=== PATIENT | male | born 1975 | race Caucasian/White ===

== ENCOUNTER 2018-08-21 05:40 | Outpatient (CLI) | payer SELFPAY ==
[~2018-08-21] VITALS: Ht 193 cm; Wt 93.0 kg
[2018-08-23] MEDS ORDERED: DOCU-143 PO (12:45)
[2018-08-23] MEDS ORDERED: ACHD5005 PO (12:45)
== END 2018-08-21 13:48 | disposition home or self-care (01) ==
LOC: PREOP 05:40
PROVIDERS: ATTEND Surgery
DX: Z01.818 Encounter for other preprocedural examination (principal)

== ENCOUNTER 2018-08-23 08:37 | Day surgery (SDC) | payer OTHER ==
[~2018-08-23] VITALS: Ht 193 cm; Wt 93.0 kg
--- OUTSIDE RECORDS SUMMARY | 2018-08-23 08:41 | XMS REPORT ---
Author Author Rosie Krishnan Organization [employer] Address Unknown Phone Unavailable Care Team Providers Care Ux Specialist Name Role Phone Rosie Krishnan CP Unavailable Allergies No Known Allergies Problems Problem Type Condition ICD-9 Code Onset Dates Condition Status Assessment Health examination of defined subpopulation V70.5 Active Problem Health examination of defined subpopulation V70.5 Active Medications Medication Code System Code Instructions Start Date End Date Status Dosage Seroquel [facility] [id number] 300 MG Orally Once a day Active 1 tablet at bedtime Procedures Procedure Coding System Code Date Office Visit, New Pt., Level 3 CPT-4 62036 Sep 24, 2013 Vital Signs Date/Time: Sep 24, 2013 Weight 228.12 lbs Height 77 inches Blood Pressure Diastolic 85 mm Hg Blood Pressure Systolic 137 mm Hg Temperature 97.8 F Cardiac Monitoring Heart Rate 99 Beats per Minute Results No Known Results Summary Purpose [employer] Submission
[2018-08-23] MEDS ORDERED: ANCEF 2 GM/50 ML PRE-MIXED IVPB IV ONE (10:00)
[2018-08-23] MEDS: LACTATED RINGERS 1,000 ML IV PRN ×2 (10:30→12:21)
[2018-08-23 10:38] VITALS: BP 138/98
--- NOTE | 2018-08-23 10:47 | Progress Note-Pre Operative ---
Pre-Operative Progress Note H&P Reviewed The H&P was reviewed, patient examined and no changes noted. Date Seen by Provider: Aug 23, 2018 Time Seen by Provider: 10:46 Date H&P Reviewed: Aug 23, 2018 Time H&P Reviewed: 10:46 Pre-Operative Diagnosis: right inguinal hernia RAJAT MARISCAL DO Aug 23, 2018 10:47
[2018-08-23] MEDS ORDERED: MIDAZOLAM 2 MG/2 ML (VERSED) VIAL ONE (11:03)
[2018-08-23] MEDS ORDERED: ROCURONIUM 10 MG/ML 5 ML SYRINGE IV ONE (11:11)
[2018-08-23] MEDS ORDERED: LIDOCAINE PF 2% 2 ML (XYLOCAINE) VIAL ONE ×2 (11:11→11:26)
[2018-08-23] MEDS ORDERED: proPOfol 200 MG/20 ML (DIPRIVAN) VIAL IV ONE (11:11)
[2018-08-23] MEDS ORDERED: ONDANSETRON 4 MG/2 ML (SDV) Z0FRAN ONE (11:11)
[2018-08-23] MEDS ORDERED: LACTATED RINGERS 1,000 ML IV ONE (11:11)
[2018-08-23] MEDS ORDERED: fentaNYL INJECTION 100 MCG/2 ML AMP ONE (11:11)
[2018-08-23] MEDS ORDERED: LIDOCAINE 1% INJ 20 ML 20 ML VIAL ONE (11:20)
[2018-08-23] MEDS ORDERED: BUPIVACAINE 0.5% 30 ML (SENSORCAINE) VIAL ONE (11:20)
[2018-08-23] MEDS ORDERED: SEVOFLURANE (ULTANE) 15 ML INHAL SOLN ONE (12:34)
[2018-08-23] MEDS ORDERED: DEXAMETHASONE 10 MG/ML (DECADRON) 1 ML VIAL ONE (12:35)
[2018-08-23] MEDS ORDERED: GLYCOPYRROLATE 0.2 MG/ML (ROBINUL) 2 ML VIAL ONE (12:40)
[2018-08-23] MEDS ORDERED: NEOSTIGMINE 1 MG/ML 5 ML SYRINGE ONE (12:40)
--- NOTE | 2018-08-23 12:44 | Progress Note-Post Operative ---
Post-Operative Progess Note Surgeon (s)/Box Coverer Hand (s) Surgeon RAJAT MRAISCAL DO Box Coverer Hand: dR. Shepard Pre-Operative Diagnosis right inguinal hernia Post-Operative Diagnosis SAME Procedure & Operative Findings Date of Procedure 08/23/18 Procedure Performed/Findings OPEN RIGHT INGUINAL HERNIA AND EXCISION CORD LIPOMA Anesthesia Type GEN Estimated Blood Loss Estimated blood loss (mL): MIN Specimens/Packing Specimens Removed HERNIA SAC AND CORD LIPOMA RAJAT MARISCAL DO Aug 23, 2018 12:44
[2018-08-23] MEDS ORDERED: DOCU-143 PO (12:45)
[2018-08-23] MEDS ORDERED: ACHD5005 PO (12:45)
--- NOTE | 2018-08-23 12:46 | Discharge Inst-Simple/Standard ---
Discharge Inst-Standard Discharge Medications New, Converted or Re-Newed RX: RX on Chart Patient Instructions/Follow Up Plan of Care/Instructions/FU: 3 WEEKS MARISCAL Activity as Tolerated: No Discharge Diet: Regular Diet Other Inst to Patient Follow up Appt: Make appointment for 3 week. Instructions: No lifting greater than 10 pounds. No strenuous activity. May shower in 24 hours, no tub bath or soaking. Use incentive spirometer at home as directed. No Smoking Skin/Wound Care: YOU HAVE SPECIAL GLUE OVER INCISION IT WILL FALL OFF ON ITS OWN. Symptoms to Report: Appetite Changes, Extremity Discoloration, Numbness/Tingling, Swelling Increased , Bleeding Excessive, Eyesight Changes, Pain Increased, Urine Color Change, Constipation(Persistent), Fever over 101 degree F, Pain/Pressure in chest, Urinating Difficulty, Cough Up/Vomit Blood, Heart Beat Irreg/Pounding, Pain/ Pressure in jaw, Vaginal Bleeding Increase, Cramps in feet or legs, Lightheadedness, Pain/Pressure in shoulder, Diarrhea(Persistent), Memory Changes Suddenly, Questions/Concerns, Weight gain consecutive days, Dizziness/ Fainting, Nausea/Vomiting, Shortness of Breath, Weight gain over 2 pounds If questions or concerns contact your physician Or seek help at emergency department. RAJAT MARISCAL DO Aug 23, 2018 12:46
[2018-08-23] MEDS ORDERED: MEPERIDINE (DEMEROL) INJ 50 MG/ML IVP ONE (13:00)
[2018-08-23] MEDS ORDERED: KETOROLAC 30 MG/ML VIAL IVP ONE (13:00)
[2018-08-23] MEDS ORDERED: ONDANSETRON 4 MG/2 ML (SDV) Z0FRAN IVP PRN (13:00)
[2018-08-23] MEDS ORDERED: morphine INJ 10 MG/ML 1ML (SYR OR VIAL) IVP ONE (13:00)
[2018-08-23 14:00] VITALS: BP 141/100
[2018-08-23 14:30] VITALS: BP 130/91
[2018-08-23] MEDS ORDERED: HYDROcodone/APAP 5 MG/325 MG (LORTAB) TAB PO ONE (14:30)
[2018-08-23 15:00] VITALS: BP 123/93
[2018-08-23 15:30] VITALS: BP 123/93
--- NOTE | 2018-08-23 19:03 | OPERATIVE REPORT ---
DATE OF SERVICE: 08/23/2018 PREOPERATIVE DIAGNOSIS: Right inguinal hernia. POSTOPERATIVE DIAGNOSIS: Right inguinal hernia. PROCEDURE: Open right inguinal hernia repair with excision of cord lipoma. SURGEON: Rajat Bolanos DO GLOBE CLEANER: Dr. Cota, assisted in retraction, dissection and closure. ANESTHESIA: General. ESTIMATED BLOOD LOSS: Minimal. COMPLICATIONS: None. INDICATIONS: The patient is a 43-year-old male with a right inguinal hernia. He understands risks and benefits of procedure and wished to proceed with procedure. Consent was signed on the chart. DESCRIPTION OF PROCEDURE: The patient was taken to the operating suite, was prepped and draped in sterile fashion. Surgical pause was performed. Local anesthetic was used to infiltrate the right lower quadrant. Incision was made and cautery was used to dissect down to the external oblique. The external oblique was then opened down to the external ring and the spermatic cord was then mobilized. [place] drain was placed around it. There was no direct defect. There was an indirect defect. The hernia sac was then dissected off of the cord. The hernia sac was then opened. There were no contents within it. The hernia sac was then twisted and suture ligated with an 0 Vicryl. This was then reduced. There was also a cord lipoma present on the cord; this was excised using cautery. A ProGrip mesh was then attached to the Anmol's ligament and was incorporated around the spermatic cord. This all was placed under the external oblique. The external oblique was then closed using a 3-0 Vicryl in a running fashion, recreating the external ring. The subcutaneous tissues were then reapproximated using 3-0 Vicryl. Skin was then closed using 4-0 Monocryl in a running subcuticular fashion. The area was then washed and dried and Skin Affix was placed over the incision. The patient tolerated the procedure well without any complications and was taken to recovery room in stable condition. Job ID: [id number] DocumentID: [id number] Dictated Date: 08/23/2018 14:10:14 Oil Agent Date: 08/23/2018 19:03:07 Dictated By: RAJAT BOLANOS DO
== END 2018-08-23 15:35 | disposition home or self-care (01) ==
LOC: SDC 08:37
PROVIDERS: ATTEND Surgery
DX: K40.90 Unilateral inguinal hernia, without obstruction or gangrene, not specified as recurrent (principal); D17.6 Benign lipomatous neoplasm of spermatic cord; F17.210 Nicotine dependence, cigarettes, uncomplicated; F32.9 Major depressive disorder, single episode, unspecified; F41.9 Anxiety disorder, unspecified; Z79.899 Other long term (current) drug therapy; Z11.2 Encounter for screening for other bacterial diseases
CPT/HCPCS: 87081; 94664